=== PATIENT | female | born 2005 | race Caucasian/White ===

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

== ENCOUNTER 2024-03-06 19:54 | Emergency (ER) | payer MEDICAID, SELFPAY ==
[2024-03-06 19:56] VITALS: BP 155/96; PULSE 109; RESP 18; TEMP 36.9; O2SAT 99
--- NOTE | 2024-03-06 19:59 | W.ED.GENAD ---
Discharge Plan Disposition Patient Disposition: Home Condition: Stable Discharge Details Clinical Impression: Contusion of right upper extremity Primary Care Provider: Kassi Garay ED Provider: Dylan Mcdonough Home Meds and New Rx's Prescriptions: Continued albuterol sulfate [ProAir HFA] 90 mcg/actuation HFA aerosol inhaler 2 puff Inhalation Q4H PRN Qty: 2 3RF Rx Instructions: Take 2 puffs with spacer every 4-6 hours as needed (DME) Aerochamber MV Spacer See Rx Instructions .ROUTE .MEDSUPPLY Qty: 1 1RF Rx Instructions: As directed phenazopyridine [Pyridium] 100 mg tablet 100 mg PO TID PRN (Reason: pain) Qty: 20 0RF Rx Instructions: Do not take more than 2 days in a row buspirone 15 mg tablet 15 mg PO BID Qty: 60 3RF Rx Instructions: take one tablet twice a day acyclovir 400 MG tablet 400 mg PO TID PRN Rx Instructions: take 1 tablet 3 times a day for 5 days, begin at first hint of cold sore Discharge Instructions Instructions: Contusion in Adults (ED) Additional Instructions: You were seen in the emergency department for the fall from a horse. You have some minor abrasions to right bicep and right scapula area, there is no acute fracture seen on your x-rays of your right upper extremity, I suspect that you have significant contusions and your bruising will get worse in the coming days. Please rest, ice, compress and elevate. Please use therapeutic dosing of Tylenol (acetamenophen) & Advil (ibuprofen) in an alternating fashion as follows: Take 1000mg of Tylenol every 6 hours without missing doses- that is 4 times per day. Senior Care in between the Tylenol dosings, take 400-600mg of Advil also on a 6 hour schedule, that is also 4 times per day. The daily maximum dosing of Tylenol is 4000mg, and the daily maximum dosing of Advil is 2400mg. This is safe to do for weeks. Please note that some common cold medications & prescription pain medications may contain acetamenophen and you need to read OTC drug labels and factor that in to maximum daily dosings. Please return to the emergency department for any signs of neurovascular compromise like complete numbness, extreme swelling and pain in the right forearm, any transient numbness in your groin, urinary retention, bowel incontinence, leg paresthesias. Stand Alone Forms: Work Release Referrals: Kassi Garay [Primary Care Provider] - HPI General Date/Time Provider Initiated Documentation: 03/06/24 19:59. HPI Narrative: 19 year-old female presents to ED today by POV/ambulating with her family with a chief complaint of fall from horse, injury to R arm with onset just prior to arrival. Quality described as R elbow pain, abrasion to R shoulder, no radiation to neck pain, headstrike, LOC, post-event nausea/vomiting, complete numbness, inability to move the arm, chest pain, shortness of breath, rib pain. Severity is described as moderate. Palliating factors include nothing specific attempted. Provoking factors include nothing specific. Events leading up to the incident/Associated Symptoms: [ ]. Patient not anticoagulated. Related Data Home Medications Medication Instructions Recorded Confirmed acyclovir 400 mg tablet 400 mg PO TID PRN 03/02/20 03/06/24 inhalational spacing device #1 ea 10/06/20 03/06/24 (Aerochamber MV spacer) albuterol sulfate 90 mcg/actuation 2 puff inhalation Q4H PRN ##2 10/11/21 03/06/24 aerosol inhaler (ProAir HFA) phenazopyridine 100 mg tablet 100 mg PO TID PRN pain #20 tabs 12/21/22 03/06/24 (Pyridium) buspirone 15 mg tablet 15 mg PO BID #60 tabs 12/26/22 03/06/24 Previous Rx's Medication Instructions Recorded inhalational spacing device #1 ea 10/06/20 (Aerochamber MV spacer) albuterol sulfate 90 mcg/actuation 2 puff inhalation Q4H PRN ##2 10/11/21 aerosol inhaler (ProAir HFA) phenazopyridine 100 mg tablet 100 mg PO TID PRN pain #20 tabs 12/21/22 (Pyridium) buspirone 15 mg tablet 15 mg PO BID #60 tabs 12/26/22 Allergies Allergy/AdvReac Type Severity Reaction Status Date / Time Penicillins Allergy Intermediate RASH Verified 03/06/24 20:12 Sulfa (Sulfonamide AdvReac Mild Other (See Verified 03/06/24 20:12 Antibiotics) Comment) General Stated Complaint: Orthopedic SHYANN: 4 Review of Systems All systems reviewed & are unremarkable except as noted in HPI and below Exam Narrative Exam Narrative: GENERAL APPEARANCE: Well-nourished, non-toxic, awake and alert, atraumatic, no acute distress. SKIN: Warm, pink, dry, intact, without rashes/lesions/ulcerations. HEAD: Normocephalic, atraumatic, normal hair distribution for gender/age. EYES: Pupils PERRLA, EOMs intact without nystagmus, normal conjunctiva, no exudates on lids/lashes. ENT: Nares patent, no circumoral cyanosis, no facial swelling NECK: Supple, trachea midline, painless cervical ROM. LUNGS/CHEST: Non-labored respirations, normal A/P diameter, symmetrical expansion, no chest wall deformity HEART (CV/PV): Regular rate, R radial pulse 2+, no peripheral edema, no JVD. ABDOMEN: Soft, non-distended, no guarding. MSK: Normal ROM, no swelling/deformity to bilateral UEs or LEs, moving all extremities without weakness, no cyanosis, spine midline without tenderness, normal curvature. R UE: Abrasion to skin around medial bicep, abrasion to skin posterior scapula, significant midshaft humeral tenderness, significant elbow tenderness with bruising and swelling without overt deformity, has severe limited range of motion due to pain, sensation intact in motor vehicle representative strength 5/5 in right hand, right radial pulse 2+, no deltoid insertion tenderness, no deformity to right clavicle, no midline vertebral tenderness/crepitus/step-offs, no scalp hematomas NEURO: Mental Status AAOx4 - alert to person, place, time, events No facial droop, no forehead involvement. Motor: No focal weakness - strength 5/5 in bilateral UEs and LEs, proximal and distal, symmetric. Sensory: sensation intact to light touch globally. Gait normal: patient ambulated without ataxia into ED room. PSYCH: euthymic, cooperative, pleasant, appropriate speech Course Vital Signs Vital signs: Vital Signs Temperature 36.9 C 03/06/24 19:56 Pulse 109 H 03/06/24 19:56 Respiratory Rate 18 03/06/24 19:56 Blood Pressure 155/96 H 03/06/24 19:56 Pulse Oximetry 99 03/06/24 19:56 Temperature 36.9 C 03/06/24 19:56 Temperature Source Skin 03/06/24 19:56 Pulse 109 H 03/06/24 19:56 Respiratory Rate 18 03/06/24 19:56 Blood Pressure 155/96 H 03/06/24 19:56 Blood Pressure Position Sitting 03/06/24 19:56 Pulse Oximetry 99 03/06/24 19:56 Oxygen Delivery Method Room Air 03/06/24 19:56 Oxygen Flow Rate 0 03/06/24 19:56 Pain Level 6 03/06/24 19:56 Medical Decision Making This dictation utilizes [id number] dictation software and may contain unedited grammatical errors. 19 y/o F presents to ED today with a chief complaint of fall from horse with R arm pain - elbow and shoulder, abrasion to posterior shoulder, denies headstrike/LOC, denies neck pain, no nausea/vomiting, is able to move the arm- is R hand dominant. Patient was not wearing a helmet, states horse stepped on her bicep area afterwards. Patients' medical history: negative, otherwise healthy. Family and social history: noncontributory. Pertinent exam findings / vital signs include R UE: Abrasion to skin around medial bicep, abrasion to skin posterior scapula, significant midshaft humeral tenderness, significant elbow tenderness with bruising and swelling without overt deformity, has severe limited range of motion due to pain, sensation intact in motor vehicle representative strength 5/5 in right hand, right radial pulse 2+, no deltoid insertion tenderness, no deformity to right clavicle, no midline vertebral tenderness/crepitus/step-offs, no scalp hematomas. Differential / pathologies of concern include fracture, abrasion, not NV compromise. Diagnostic studies of: -XR R Shoulder, XR R Elbow. -no acute fractures seen, question slight AC separation R shoulder Interventions of: -Tdap likely UTD- encouraged checking with PCP, had routine shots likely had Tdap at 17 yrs old. -1g APAP, 30mg IM toradol, 5mg oxycodone PO ED Course/Assessment/Plan: 19-year-old female had a fall from her horse with abrasions to the posterior right shoulder, right elbow pain where her horse stepped on her after the fall, was not wearing a helmet but denies head strike or neck pain, has mild pain to her hip where she came down on the ground but is ambulating fine and states this is much more mild than her upper extremity pain. X-ray of the elbow and shoulder are negative for acute fracture I do question is slight AC separation of the right shoulder on exam and review of x-ray. I recommend therapeutic dosing of Tylenol and ibuprofen as well as RICE therapy, keeping the minor abrasions clean which were addressed here in the department. Recommend she return for any signs of neurovascular compromise like severe swelling and pain in the right forearm compartment, any numbness or tingling or inability to move her upper or lower extremities. Findings not consistent with fracture, NV compromise. Disposition of Contusion of Right Upper Extremity. Patient verbalized understanding of the plan and return to ED criteria and engaged in shared decision making. Medical Records Medical records reviewed: Yes I reviewed the patient's medical records. Imaging Data Radiologic Study: Attestation: I personally reviewed and interpreted this imaging study as follows: Imaging: X-Ray Radiologist's impression: Exam: XR Right Elbow Exam date and time: 03/06/2024 8:44 PM Age: 19 years old Clinical indication: Injury or trauma; Blunt trauma (contusions or hematomas); Shoulder and elbow; Right; Injury details: Fall from horse R shoulder \T\ elbow pain TECHNIQUE: Imaging protocol: Radiologic exam of the right elbow. Views: 3 or more views. COMPARISON: CR XR SHOULDER RT COMPLETE 2+V 03/06/2024 8:42 PM FINDINGS: Bones/joints: Radial head is unremarkable. Distal humerus is unremarkable. Olecranon is unremarkable. No fracture or dislocation. Soft tissues: Normal. IMPRESSION: No fracture or dislocation. Dictated and Authenticated by: Ezequiel Rodríguez MD. Ordering:ESME Richardson MD Radiologic Study #2: Attestation: I personally reviewed and interpreted this imaging study as follows: Imaging: X-Ray Radiologist's impression: Exam: XR Right Shoulder Exam date and time: 03/06/2024 8:42 PM Age: 19 years old Clinical indication: Injury or trauma; Blunt trauma (contusions or hematomas); Shoulder and elbow; Right; Injury details: Fall from horse R shoulder \T\ elbow pain TECHNIQUE: Imaging protocol: Radiologic exam of the right shoulder. Views: 2 or more views. COMPARISON: No relevant prior studies available. FINDINGS: Bones/joints: No evidence of clavicular fracture. No evidence of scapular fracture. Humeral head and neck are unremarkable. No evidence of rib fracture. No fracture or dislocation. Soft tissues: Normal. IMPRESSION: No fracture or dislocation. Dictated and Authenticated by: Ezequiel Rodríguez MD. Quality:[facility] Health Related Social Needs: No Data to Display PFSH All Active Problems (Updated 03/06/24 @ 21:35 by CAMACHO Shelley) Contusion of right upper extremity (Acute) Tick bite (Acute) Anxiety (Chronic) Pain in pelvis (Acute) Hematochezia (Acute) Interstitial cystitis (Acute) Pyridium PRN and push fluids with episodes of dysuria Herpes labialis (Acute 02/08/13) Mild intermittent asthma without complication (Acute 09/14/17) exercised induced SOB Medical History Closed fracture of shaft of radius (08/20/12) Concussion without loss of consciousness, initial encounter (04/09/15) Eating disorder with ongoing treatment Bulimia features. Followed by Mabel Sotelo and has routine counseling with Adrianna Wolf. 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) UTI (urinary tract infection) Surgical History History of dental surgery All 4 wisdom teeth removed spring 2019 Family History Mother Mental disorder depression Asthma Father Asthma Brother Asthma Grandparent Heart disease Social History Smoking/Tobacco Use Status: Current every day Tobacco Type: e-cigarettes Smoking risk assessment performed?: Yes Alcohol Intake: current Alcohol Intake frequency: a few times a month Alcohol type: other Drug use: Never Substance use type: marijuana Housing: house Education Level: high school Details: 12th grade--[employer] Pets and animals: Yes (5 dogs, 5 cats, horses, guinea pigs) Pets and animals: cat(s), dog(s), guinea pig(s) and farm animals Current gender identity: female Seatbelt use: always Helmet use: Yes Helmet use: always Water heater temp set <120 deg: Yes Fire extinguisher in home: Yes Carbon monox detector in home: Yes Firearms in home: Yes Firearms unloaded and locked: Yes Do you feel safe at home: Yes Do you feel safe in your relationship?: Yes Additional Social history: mother present History History 1 Para 0 Hx # Term Pregnancies 0 Multiple births 0 Hx # Pregnancies 0 Ectopic pregnancies 0 AB induced 0 Hx Number of Living Children 0 AB spontaneous 0
--- NOTE | 2024-03-06 20:00 | DI.RAD_ITS ---
Exam(s) XR SHOULDER RT COMPLETE 2+V EXAM: XR SHOULDER RT COMPLETE 2+V CLINICAL HISTORY: fall from horse R shoulder elbow pain. TECHNIQUE: 2D digital imaging was performed of the right shoulder. Three images were obtained. AP, Grashey and Y views were obtained. COMPARISON: No exams were available for comparison FINDINGS: BONES: No acute fracture is present. No bony destructive lesion is seen. JOINTS: No dislocation present. SOFT TISSUE: Normal. IMPRESSION: No acute fracture or dislocation. If there is concern for rotator cuff or AC ligament injury, MRI sh ould be considered for further evaluation. DATA REPOSITORY: RADIATION DOSE DELIVERED:
--- NOTE | 2024-03-06 20:00 | DI.RAD_ITS ---
Exam(s) XR ELBOW RT COMPLETE EXAM: XR ELBOW RT COMPLETE CLINICAL HISTORY: fall from horse R shoulder elbow pain. TECHNIQUE: 2D digital imaging was performed of the left elbow. Three images were obtained. AP, lat eral and oblique views were obtained. COMPARISON: No exams were available for comparison FINDINGS: BONES: No acute fracture is present. No bony destructive lesion is seen. JOINTS: The elbow is normally aligned. No joint effusion is seen. SOFT TISSUE: Mild edema seen in the soft tissues anterior medially. No radiopaque foreign body is id entified. IMPRESSION: No acute fracture or dislocation. DATA REPOSITORY: RADIATION DOSE DELIVERED:
[2024-03-06] MEDS: Acetaminophen 500 MG TAB (20:32)
[2024-03-06] MEDS: Ketorolac 30 MG/ML VIAL (20:32)
--- NOTE | 2024-03-06 21:30 | DI.VRAD_ITS ---
PROCEDURE INFORMATION: Exam: XR Right Elbow Exam date and time: 03/06/2024 8:44 PM Age: 19 years old Clinical indication: Injury or trauma; Blunt trauma (contusions or hematomas); Shoulder and elbow; Right; Injury details: Fall from horse R shoulder \T\ elbow pain TECHNIQUE: Imaging protocol: Radiologic exam of the right elbow. Views: 3 or more views. COMPARISON: CR XR SHOULDER RT COMPLETE 2+V 03/06/2024 8:42 PM FINDINGS: Bones/joints: Radial head is unremarkable. Distal humerus is unremarkable. Olecranon is unremarkable. No fracture or dislocation. Soft tissues: Normal. IMPRESSION: No fracture or dislocation. Dictated and Authenticated by: Ezequiel Rodríguez MD. Ordering:ESME Richardson MD
--- NOTE | 2024-03-06 21:35 | DI.VRAD_ITS ---
PROCEDURE INFORMATION: Exam: XR Right Shoulder Exam date and time: 03/06/2024 8:42 PM Age: 19 years old Clinical indication: Injury or trauma; Blunt trauma (contusions or hematomas); Shoulder and elbow; Right; Injury details: Fall from horse R shoulder \T\ elbow pain TECHNIQUE: Imaging protocol: Radiologic exam of the right shoulder. Views: 2 or more views. COMPARISON: No relevant prior studies available. FINDINGS: Bones/joints: No evidence of clavicular fracture. No evidence of scapular fracture. Humeral head and neck are unremarkable. No evidence of rib fracture. No fracture or dislocation. Soft tissues: Normal. IMPRESSION: No fracture or dislocation. Dictated and Authenticated by: Ezequiel Rodríguez MD. Ordering:ESME Richardson MD
[2024-03-06] MEDS: oxyCODONE 5 MG TAB PO (21:36)
[2024-03-06 21:44] VITALS: BP 119/82; PULSE 95; RESP 18; O2SAT 99
== END 2024-03-06 21:44 | disposition home or self-care (01) ==
PROVIDERS: Emergency Provider Physician Assistant; PCP Nurse Practitioner Family
DX: S40.021A Contusion of right upper arm, initial encounter (principal); S40.211A Abrasion of right shoulder, initial encounter; S40.811A Abrasion of right upper arm, initial encounter; F17.290 Nicotine dependence, other tobacco product, uncomplicated; V80.010A Animal-rider injured by fall from or being thrown from horse in noncollision accident, initial encounter; Y93.52 Activity, horseback riding
CPT/HCPCS: 99283; 73030; 73080; J1885

== ENCOUNTER 2025-05-07 17:24 | Observation (INO) | payer MEDICAID, SELFPAY ==
[2025-05-07] VITALS (14 sets, daily range): BP systolic 103–125; BP diastolic 59–78; PULSE 65–150; RESP 16–26; TEMP 36.5–39.2; O2SAT 96–98
--- NOTE | 2025-05-07 17:43 | DI.CT_ITS ---
Exam(s) CT CHEST W EXAM: CT CHEST W CLINICAL HISTORY: sepsis, L. breast cellulitis. TECHNIQUE: Multi planar reconstructions were performed. CONTRAST MATERIAL: Omnipaque 350; 70 cc COMPARISON: No exams were available for comparison FINDINGS: CHEST: LUNGS: No infiltrates nor pleural effusions. No significant lung nodules. No findings in trachea and mainstem bronchi. MEDIASTINUM: There is no hilar nor mediastinal adenopathy. Partially visualized thyroid appears unremarkable. CARDIAC: Heart size is normal. There is no pericardial effusion.Thoracic aorta appears unremarkable. VISUALIZED UPPER ABDOMEN:There are no significant adrenal masses. Spleen size normal. No obvious upper liver findings. OSSEOUS: No fractures. No osseous lesions.. OTHER: There is apparently left breasts cellulitis according to the requisition. There are no obvious focal breast findings. No evidence of abscess. No significant axillary adenopathy. Pectoralis muscles appear unremarkable. IMPRESSION: 1. No significant findings on the CT scan of the chest. 2. No obvious abnormal focal findings in the breasts, given the history here. There is also no axillary adenopathy. Report called by myself to ER physician 05/07/2025 at 7:22 p.m. RADIATION DOSE DELIVERED: 139.94mGy.cm Total DLP DATA REPOSITORY: All CT scans at this facility are submitted to the National Radiology Data Registry (NRDR) Dose Index Registry (DIR) with the [employer] (ACR). RADIATION OPTIMIZATION: All CT scans at this facility use at least one of these dose optimization techniques: automated exposure control; mA and/or kV adjustment per patient size (includes targeted exams where dose is matched to clinical indication); or iterative reconstruction.
[2025-05-07 18:03] LABS: Abs Immature Grans 0.11 10^3/uL (0.0-0.06); HCT 41.2 % (36.0-46.0); HGB 14.6 g/dL (11.2-15.7); Immature Grans % 0.5 %; MCH 32.2 pg (27.0-33.0); MCHC 35.4 % (32.0-36.0); MCV 91 fL (80-95); MPV 10.0 fL (8.0-11.0); Platelet Count 320 10^3/uL (130-400); RBC 4.54 10^6/uL (3.93-5.22); RDW 11.5 % (11.7-14.6); RDW-SD 38.1 fL; WBC 24.35 10^3/uL (4.4-10.8)
[2025-05-07] MEDS: Acetaminophen 500 MG TAB 1000 MG PO (18:12)
[2025-05-07 18:13] LABS: RBC Morphology Normal
[2025-05-07] MEDS: cefTRIAXone 1 GM/50 ML BAG IVPB (18:13)
[2025-05-07 18:17] LABS: ALT 21 U/L (14-59); AST 18 U/L (15-37); Albumin 4.5 g/dL (3.4-5.0); Alkaline Phosphatase 97 U/L (46-116); Anion Gap 13.3 mmol/L (3-11); BUN 15 mg/dL (7-18); Bilirubin, Total 1.0 mg/dL (0.2-1.0); CO2 22.7 mmol/L (21.0-32.0); Calcium 9.0 mg/dL (8.5-10.1); Chloride 100 mmol/L (98-107); Estimated GFR 107.44 (mL/min/1.73m2); Glucose 100 mg/dL (74-106); Magnesium 1.7 mg/dL (1.8-2.4); Potassium 3.7 mmol/L (3.5-5.1); Sodium 136 mmol/L (136-145); Total Protein 8.0 g/dL (6.4-8.2)
[2025-05-07] MEDS: Lactated Ringers 1,000 ML 1000 ML IV (18:30)
[2025-05-07] MEDS: Omnipaque 350 MG/ML 100 ML BTL 70 ML IJ (18:41)
[2025-05-07] MEDS: Normal Saline - Diluent 50 ML VIAL IJ (18:42)
--- NOTE | 2025-05-07 18:44 | W.ED.GENAD ---
Discharge Plan Disposition Patient Disposition: Admit to [facility] Discharge Details Clinical Impression: Sepsis, Cellulitis of left breast Admit Date/Time: 05/07/25 20:04 Admit Provider: Ted Peguero Attending Provider: Ted Peguero Primary Care Provider: Kassi Garay ED Provider: Brittney Valles Discharge Data Discharge Date/Time-TO BE ENTERED AT DEPARTURE: 05/07/25 20:26 HPI General Mode of arrival: ambulatory. Date/Time Provider Initiated Documentation: 05/07/25 17:36. Limitations to Documentation: no limitations. Information obtained by: patient, family and old records reviewed. HPI Narrative: This is a 20-year-old female patient with a history of mild intermittent asthma, presenting for evaluation of breast infection. The patient reports that her nipples were pierced last year and she has since had significant difficulty with intermittent superficial infections. She states that yesterday her left breast began to get very red, hot, and painful to the touch. She does note intermittent expression of pus from her nipples. States that she is not or breast-feeding, had a fever at home, and presented today for evaluation. She met criteria for sepsis alert in triage and was taken back for reevaluation. She reports generalized body weakness and discomfort. She does not have any associated shortness of breath, upper respiratory symptoms, dysuria, diarrhea, or abdominal pain. She is not currently taking any antibiotics, though she did recently finished a course of antibiotics for strep throat. Related Data Home Medications ?Medication ?Instructions ?Recorded ?Confirmed acyclovir 400 mg tablet 400 mg PO TID PRN 03/02/20 05/07/25 inhalational spacing device #1 ea 10/06/20 05/07/25 (Aerochamber MV spacer) albuterol sulfate 90 mcg/actuation 2 puff inhalation Q4H PRN ##2 10/11/21 05/07/25 aerosol inhaler (ProAir HFA) phenazopyridine 100 mg tablet 100 mg PO TID PRN pain #20 tabs 12/21/22 05/07/25 (Pyridium) buspirone 15 mg tablet 15 mg PO BID #60 tabs 12/26/22 05/07/25 levonorgestrel 14 mcg/24 hr (up to 1 device intrauterine ONCE 05/07/25 05/07/25 3 yrs) 13.5 mg intrauterine device (Mary) Previous Rx's ?Medication ?Instructions ?Recorded inhalational spacing device #1 ea 10/06/20 (Aerochamber MV spacer) albuterol sulfate 90 mcg/actuation 2 puff inhalation Q4H PRN ##2 10/11/21 aerosol inhaler (ProAir HFA) phenazopyridine 100 mg tablet 100 mg PO TID PRN pain #20 tabs 12/21/22 (Pyridium) buspirone 15 mg tablet 15 mg PO BID #60 tabs 12/26/22 Allergies Allergy/AdvReac Type Severity Reaction Status Date / Time Penicillins Allergy Intermediate RASH Verified 05/07/25 17:30 vancomycin AdvReac Intermediate rash, Verified 05/07/25 21:31 redness Sulfa (Sulfonamide AdvReac Mild Other (See Verified 05/07/25 17:30 Antibiotics) Comment) General Stated Complaint: Fever SHYANN: 2 Exam Narrative Exam Narrative: Gen: awake and alert, in no apparent distress. Appears well nourished. HEENT: PERRL, EOMs full and without nystagmus. External ears and nose normal, mucous membranes moist. Neck: Supple, full range of motion, no observable masses Lungs: No increased work of breathing, lung sounds clear and equal bilaterally without wheezes, rhonchi, or rales. CV: Heart with tachycardic rate and regular rhythm, no murmurs auscultated. Strong and symmetrical radial pulses. Breast: Breast examination supervised by BRAD Chinchilla, revealing bilaterally pierced nipples, right breast with very slight red bumps around the areola, left breast with redness, induration, and significant tenderness in the inferolateral quadrant. No palpable fluctuance, no axillary lymphadenopathy appreciated bilaterally Abdomen: Soft, nondistended, non-tender to palpation. No rigidity, rebound tenderness, or guarding. MSK: No joint swelling, no redness. Full ROM without limitation, no external traumatic findings. Skin: No rashes or lesions to visualized skin. Normal color, warm, and dry. Neuro: Cranial nerves II-XII intact and symmetrical bilaterally. 5/5 strength in all muscle groups x4 extremities. No sensory deficits. Ambulates with steady gait. Psych: Appropriate for situation. Course Vital Signs Vital signs: Vital Signs Temperature 39.2 C H 05/07/25 17:30 Pulse 150 H 05/07/25 17:30 Respiratory Rate 24 05/07/25 17:30 Blood Pressure 111/73 05/07/25 17:30 Pulse Oximetry 96 05/07/25 17:30 Temperature 39.2 C H 05/07/25 17:30 Temperature Source Oral 05/07/25 17:30 Pulse 145 H 05/07/25 17:40 Respiratory Rate 19 05/07/25 17:40 Blood Pressure 116/60 05/07/25 17:40 Blood Pressure Position Sitting 05/07/25 17:30 Pulse Oximetry 98 05/07/25 17:40 Oxygen Delivery Method Room Air 05/07/25 17:40 Oxygen Flow Rate 0 05/07/25 17:30 Pain Level 4 05/07/25 17:40 Lab/Test Results Lab/Test Results: 05/07/25 18:05 Blood Blood Culture - Pending 05/07/25 17:50 Blood Blood Culture - Pending Laboratory Tests Range/Units 05/07/25 17:50 WBC (4.4-10.8) 10^3/uL 24.35 H RBC (3.93-5.22) 10^6/uL 4.54 Hgb (11.2-15.7) g/dL 14.6 Hct (36.0-46.0) % 41.2 MCV (80-95) fL 91 MCH (27.0-33.0) pg 32.2 MCHC (32.0-36.0) % 35.4 RDW (11.7-14.6) % 11.5 L Plt Count (130-400) 10^3/uL 320 MPV (8.0-11.0) fL 10.0 Immature Gran % % 0.5 Neutrophils % % 91.1 Lymphocytes % % 3.9 Monocytes % % 4.3 Eosinophils % % 0.0 Basophils % % 0.2 Nucleated RBC % (0.0-0.3) % 0.0 Absolute Neutrophils (1.2-6.7) 10^3/uL 22.18 H Absolute Lymphocytes (1.2-3.4) 10^3/uL 0.95 L Absolute Monocytes (0.1-0.8) 10^3/uL 1.05 H Absolute Eosinophils (0.0-0.7) 10^3/uL 0.00 Absolute Basophils (0.0-0.2) 10^3/uL 0.05 RBC Morphology Normal VBG Lactate (<or=2.0) mmol/L 1.1 Sodium (136-145) mmol/L 136 Potassium (3.5-5.1) mmol/L 3.7 Chloride (98-107) mmol/L 100 Carbon Dioxide (21.0-32.0) mmol/L 22.7 Anion Gap (3-11) mmol/L 13.3 H BUN (7-18) mg/dL 15 Creatinine (0.55-1.02) mg/dL 0.8 Est GFR (CKD-EPI 2020) (mL/min/1.73m2) 107.44 Glucose (74-106) mg/dL 100 Calcium (8.5-10.1) mg/dL 9.0 Magnesium (1.8-2.4) mg/dL 1.7 L Total Bilirubin (0.2-1.0) mg/dL 1.0 AST (15-37) U/L 18 ALT (14-59) U/L 21 Alkaline Phosphatase (46-116) U/L 97 Total Protein (6.4-8.2) g/dL 8.0 Albumin (3.4-5.0) g/dL 4.5 Medical Decision Making This is a 20-year-old female patient presenting for evaluation of a breast infection. Differential includes but is not limited to cellulitis, abscess, patient does meet sepsis criteria. Considered bacteremia, as well as other infectious sources including pneumonia, urinary tract infection. No intra-abdominal symptoms to suggest intra-abdominal pathology. Considered metabolic and electrolyte derangements, dehydration, kidney injury. Savun-[id number] test was negative, jewelry was removed from the nipples, and the patient will be provided with Tylenol, lactated Ringer's, and we will obtain laboratory studies to include blood cultures, CBC, CMP, magnesium, lactate, urinalysis. I will provide the patient with ceftriaxone and vancomycin for her presumed skin source. -I reviewed the patient's laboratory studies, which noted a leukocytosis to 24, no anemia or thrombocytopenia. Lactate is 1.1, chemistry panel without electrolyte derangement, kidney injury, or liver disease. Urinalysis noninfectious. I did obtain a CT of the patient's chest to evaluate for intrathoracic pathology and obvious abscess. No significant focal findings or abnormalities on CT, recommendation by radiology for ultrasound if there is ongoing concern for breast abscess. The patient had flushing and redness with vancomycin, this was discontinued and daptomycin was provided. I reached out to the hospitalist who is graciously accepted this patient for admission. She remained hemodynamically improved while under my care and transferred to the floor without incident. Brittney Valles MD [facility] All Active Problems (Updated 05/07/25 @ 23:59 by Brittney Valles MD) DVT prophylaxis (Acute) Sepsis (Acute) Cellulitis of left breast (Acute) Tick bite (Acute) Anxiety (Chronic) Pain in pelvis (Acute) Hematochezia (Acute) Interstitial cystitis (Acute) Pyridium PRN and push fluids with episodes of dysuria Herpes labialis (Acute 02/08/13) Mild intermittent asthma without complication (Acute 09/14/17) exercised induced SOB Medical History Closed fracture of shaft of radius (08/20/12) Concussion without loss of consciousness, initial encounter (04/09/15) Eating disorder with ongoing treatment Bulimia features. Followed by Mabel Sotelo and has routine counseling with Adrianna Wolf. 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) UTI (urinary tract infection) Surgical History History of dental surgery All 4 wisdom teeth removed spring 2019 Family History Mother Mental disorder depression Asthma Father Asthma Brother Asthma Grandparent Heart disease Social History (Updated 05/07/25 @ 21:44 by Ted Peguero) Smoking/Tobacco Use Status: Current every day Tobacco Type: e-cigarettes Smokeless tobacco user: snus Quit status: considering quitting Smoking risk assessment performed?: Yes Alcohol Intake: current Alcohol Intake frequency: a few times a month Alcohol type: other Drug use: Never Substance use type: marijuana Housing: house Education Level: high school Details: 12th grade--[employer] Pets and animals: Yes (5 dogs, 5 cats, horses, guinea pigs) Pets and animals: cat(s), dog(s), guinea pig(s) and farm animals Current gender identity: female Seatbelt use: always Helmet use: Yes Helmet use: always Water heater temp set <120 deg: Yes Fire extinguisher in home: Yes Carbon monox detector in home: Yes Firearms in home: Yes Firearms unloaded and locked: Yes Do you feel safe at home: Yes Do you feel safe in your relationship?: Yes Additional Social history: works at [employer]. Male marcelle Sprague. History History 1 Para 0 Hx # Term Pregnancies 0 Multiple births 0 Hx # Pregnancies 0 Ectopic pregnancies 0 AB induced 0 Hx Number of Living Children 0 AB spontaneous 0
[2025-05-07] MEDS: VANCOMYCIN 1,250 MG in Normal Saline 250 ML 166.667 MG IVPB (19:13)
[2025-05-07 19:28] LABS: Glucose Negative (Negative)
[2025-05-07] MEDS: Ketorolac 15 MG/ML VIAL IVP (19:30)
--- NOTE | 2025-05-07 19:44 | NUR.NOTE ---
PT had reaction to vancomycin. PT became flushed and itching. Vanco stopped and ED MD notified. PTs VS unchanged. new ABX to be ordered. Nursing Note:
--- NOTE | 2025-05-07 20:10 | W.PM.HP.N ---
Date of service: 05/07/25 Time of Service: 20:10 Assessment and Plan Assessment and plan (1) Cellulitis of left breast: Status: Acute Assessment and plan: Rapidly progressive cellulitis/mastitis of the left breast with associated sepsis syndrome. Given clinical picture, I agree with admission for IV antibiotics No abscess on CT but some perulent discharge reported, will cover for staph including MRSA. She had red rash with vancomycin. Will use daptomycin for MRSA coverage, continue ceftriaxone. Blood cultures pending. If focal fluctuance/collection develop, consider u/s (2) Sepsis: Status: Acute Assessment and plan: As above, WBC, HR, fever, and focal infection c/w sepsis. Fortunately lactate not elevated, no organ damage. (3) Mild intermittent asthma without complication: Status: Acute Assessment and plan: not active, can ue albuterol prn but I don't anticipate she will need it. (4) DVT prophylaxis: Status: Acute Assessment and plan: enoxaparin History of Present Illness History of Present Illness Chief Complaint: fever Narrative: 20 yo F without significant medical history who presents with fever and progressive redness, pain, and swelling of her breast that came on rapidly today. She has had intermittent local infections around the right nipple off/on since she had both pierced with horizontal stainless steel studs 2.5 years ago. They were fine until yesterday, when both nipples started to get swollen, more red, and emit pus around piercings. This morning she noted some redness and swelling into her actual breast on the left, which she has never had before. By just before noon she started to feel achey all over and fatigued. She went home from work around 12:30. Headache and body aches worsened along with worst left breast pain that radiated into her left arm. She developed fevers with shaking chills, and around 4:30 her fever was 103 and she came to the ED. She denies n/v. Appetite okay. Her fever is better now with medicine in the ED. She was started on vancomycin in the ED but she developed feeling of diffuse itching and red rash soon afte the infusion started and she never got her dose. She was given ceftriaxone. She has no sick exposures. no h/o MRSA. no IVDU. No recent travel. She does have farm animals at home. No other rashes. Review of Systems All systems reviewed & are unremarkable except as noted in HPI and below PFSH All Active Problems (Updated 05/07/25 @ 21:29 by Ted Peguero) DVT prophylaxis (Acute) Sepsis (Acute) Cellulitis of left breast (Acute) Tick bite (Acute) Anxiety (Chronic) Pain in pelvis (Acute) Hematochezia (Acute) Interstitial cystitis (Acute) Pyridium PRN and push fluids with episodes of dysuria Herpes labialis (Acute 02/08/13) Mild intermittent asthma without complication (Acute 09/14/17) exercised induced SOB Medical History Closed fracture of shaft of radius (08/20/12) Concussion without loss of consciousness, initial encounter (04/09/15) Eating disorder with ongoing treatment Bulimia features. Followed by Mabel Sotelo and has routine counseling with Adrianna Wolf. 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) UTI (urinary tract infection) Surgical History History of dental surgery All 4 wisdom teeth removed spring 2019 Family History Mother Mental disorder depression Asthma Father Asthma Brother Asthma Grandparent Heart disease Social History (Updated 05/07/25 @ 21:44 by Ted Peguero) Smoking/Tobacco Use Status: Current every day Tobacco Type: e-cigarettes Smokeless tobacco user: snus Quit status: considering quitting Smoking risk assessment performed?: Yes Alcohol Intake: current Alcohol Intake frequency: a few times a month Alcohol type: other Drug use: Never Substance use type: marijuana Housing: house Education Level: high school Details: 12th grade--[employer] Pets and animals: Yes (5 dogs, 5 cats, horses, guinea pigs) Pets and animals: cat(s), dog(s), guinea pig(s) and farm animals Current gender identity: female Seatbelt use: always Helmet use: Yes Helmet use: always Water heater temp set <120 deg: Yes Fire extinguisher in home: Yes Carbon monox detector in home: Yes Firearms in home: Yes Firearms unloaded and locked: Yes Do you feel safe at home: Yes Do you feel safe in your relationship?: Yes Additional Social history: works at [employer]. Male marcelle Sprague. History History 1 Para 0 Hx # Term Pregnancies 0 Multiple births 0 Hx # Pregnancies 0 Ectopic pregnancies 0 AB induced 0 Hx Number of Living Children 0 AB spontaneous 0 Meds Allergies and Home Medications Allergies Allergy/AdvReac Type Severity Reaction Status Date / Time Penicillins Allergy Intermediate RASH Verified 05/07/25 17:30 vancomycin AdvReac Intermediate rash, Verified 05/07/25 21:31 redness Sulfa (Sulfonamide AdvReac Mild Other (See Verified 05/07/25 17:30 Antibiotics) Comment) Home Medications ?Medication ?Instructions ?Recorded ?Confirmed ?Type acyclovir 400 mg tablet 400 mg PO TID PRN 03/02/20 05/07/25 History inhalational spacing device #1 ea 10/06/20 05/07/25 Rx (Aerochamber MV spacer) albuterol sulfate 90 mcg/actuation 2 puff inhalation Q4H PRN ##2 10/11/21 05/07/25 Rx aerosol inhaler (ProAir HFA) phenazopyridine 100 mg tablet 100 mg PO TID PRN pain #20 tabs 12/21/22 05/07/25 Rx (Pyridium) buspirone 15 mg tablet 15 mg PO BID #60 tabs 12/26/22 05/07/25 Rx Exam Narrative Exam Narrative: GEN: Alert and oriented x 4, pleasant and cooperative, gives linear history. No acute distress at rest. HEENT: Head atraumatic. Conjunctiva clear, no icterus. PEERL, EOMI. no rhinorrhea. MMM, OP benign. Neck is supple with no masses or lymphadenopathy, trachea midline LUNGS: CTAB with normal effort CV: RRR with no murmurs, gallops, or rubs. ABD: active bowel sounds, soft, nontender and nondistended. No masses. EXT: no cyanosis, clubbing, or edema MSK: No joint redness or swelling NEURO: CN 2-12 grossly intact. Normal movement of 4 extremities. Normal speech and coordination. No tremor Breasts: right breast normal appearing, mild redness/crust around wound in nipple (studs removed). Left nipple similarly appearing, but entire breast is swollen, notably more full, erythema, marked tenderness, and induration in the supererior to upper/outer quadrant to the axilla. No LAD in axilla or pain or streaking down the arm. No fluctuance, though tenderness limits full exam (RN present for exam) SKIN: No rashes or open wounds other than above. PSYCH: normal mood and affect, nl thought process Results Imaging CT scan - chest: report reviewed (1. No significant findings on the CT scan of the chest. 2. No obvious abnormal focal findings in the breasts, given the history here. There is also no axillary adenopathy.) Labs 05/07/25 17:50 05/07/25 17:50 Labs: Laboratory Results - last 24 hr 05/07/25 05/07/25 17:50 19:11 WBC 24.35 H RBC 4.54 Hgb 14.6 Hct 41.2 MCV 91 MCH 32.2 MCHC 35.4 RDW 11.5 L Plt Count 320 MPV 10.0 Immature Gran % 0.5 Neutrophils % 91.1 Lymphocytes % 3.9 Monocytes % 4.3 Eosinophils % 0.0 Basophils % 0.2 Nucleated RBC % 0.0 Absolute Neutrophils 22.18 H Absolute Lymphocytes 0.95 L Absolute Monocytes 1.05 H Absolute Eosinophils 0.00 Absolute Basophils 0.05 RBC Morphology Normal VBG Lactate 1.1 Sodium 136 Potassium 3.7 Chloride 100 Carbon Dioxide 22.7 Anion Gap 13.3 H BUN 15 Creatinine 0.8 Est GFR (CKD-EPI 2020) 107.44 Glucose 100 Calcium 9.0 Magnesium 1.7 L Total Bilirubin 1.0 AST 18 ALT 21 Alkaline Phosphatase 97 Total Protein 8.0 Albumin 4.5 Urine Color Yellow Urine Clarity Clear Urine pH 6.0 Ur Specific [place] 1.010 Urine Protein Negative Urine Ketones 15 H Urine Blood Negative Urine Nitrite Negative Urine Bilirubin Negative Urine Urobilinogen 0.2 Ur Leukocyte Esterase Negative Urine Glucose Negative Last Vital Signs Temp 39.2 C H 05/07/25 17:30 Pulse 107 H 05/07/25 19:31 Resp 23 05/07/25 18:40 BP 116/64 05/07/25 19:30 Pulse Ox 97 05/07/25 19:31 Time Spent Time spent with Patient: 55-74 minutes Time was spent: preparing to see the patient(eg.review tests), obtaining and/or reviewing separately otained hiistory, ordering medications,tests, procedures, referring, communicating with other health nursing care partner, indepentently interpreting results, counseling the patient and care coordination
--- NOTE | 2025-05-07 20:51 | W.PC.ACHO ---
Registration Status: ADM IN Primary Language: Preferred Language: Yi ED Information & Data Chief Complaint Fever 05/07/25 18:44 Triage Note PT reports she has pierced 05/07/25 17:30 nipples since last year. Multiple infections since then. Reports that she has noticed both are inflamed and painful. Reports fever, weakness and is tachycardic. SEPSIS ALERT. 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) Exercise-induced asthma (Last Reviewed 02/16/22 @ 10:21 by Giovana PEREZ) History of dental surgery Most Recent Vital Signs Temperature 36.5 C 05/07/25 20:46 Temperature Source Tympanic 05/07/25 20:46 Pulse 65 05/07/25 20:46 Pulse 126 H 05/07/25 18:40 Respiratory Rate 16 05/07/25 20:46 Blood Pressure 103/62 05/07/25 20:46 Blood Pressure Mean 75 05/07/25 20:46 Blood Pressure Position Sitting 05/07/25 17:30 Pulse Oximetry 97 05/07/25 20:46 Oxygen Delivery Method Room Air 05/07/25 20:46 Oxygen Flow Rate 0 05/07/25 20:46 Pain Level 4 05/07/25 17:40 Allergies Penicillins Allergy (Intermediate, Verified 05/07/25 17:30) RASH Sulfa (Sulfonamide Antibiotics) Adverse Reaction (Mild, Verified 05/07/25 17:30) Other (See Comment) Pt reports it made her very tired and out-of-it, and also made her sneeze. Active Medications Generic Name Dose Route Start Last Admin Trade Name Freq PRN Reason Stop Dose Admin Iohexol 70 ml 05/07/25 18:45 05/07/25 18:41 Omnipaque 350 Mg/Ml 100 Ml Btl IJ 06/06/25 23:59 70 ml DIRECTED BIBIANA Administration Sodium Chloride 50 ml 05/07/25 18:45 05/07/25 18:42 Normal Saline - Diluent 50 Ml Vial IJ 50 ml .FOR DI USE BIBIANA Administration IV IV Catheter Type [Left Peripheral IV Antecubital] IV Catheter Type [Right Peripheral IV Antecubital] IV Catheter Gauge [Left 18 Antecubital] IV Catheter Gauge [Right 18 Antecubital] Diet Orders Category Date Time Status Regular/Normal [DIET] Nutrition 05/08/25 Breakfast Ordered Diagnostics 05/07/25 05/07/25 Range/Units 19:11 17:50 WBC 24.35 H (4.4-10.8) 10^3/uL RBC 4.54 (3.93-5.22) 10^6/uL Hgb 14.6 (11.2-15.7) g/dL Hct 41.2 (36.0-46.0) % MCV 91 (80-95) fL MCH 32.2 (27.0-33.0) pg MCHC 35.4 (32.0-36.0) % RDW 11.5 L (11.7-14.6) % Plt Count 320 (130-400) 10^3/uL MPV 10.0 (8.0-11.0) fL Immature Gran % 0.5 % Neutrophils % 91.1 % Lymphocytes % 3.9 % Monocytes % 4.3 % Eosinophils % 0.0 % Basophils % 0.2 % Nucleated RBC % 0.0 (0.0-0.3) % Absolute Neutrophils 22.18 H (1.2-6.7) 10^3/uL Absolute Lymphocytes 0.95 L (1.2-3.4) 10^3/uL Absolute Monocytes 1.05 H (0.1-0.8) 10^3/uL Absolute Eosinophils 0.00 (0.0-0.7) 10^3/uL Absolute Basophils 0.05 (0.0-0.2) 10^3/uL RBC Morphology Normal VBG Lactate 1.1 (<or=2.0) mmol/L Sodium 136 (136-145) mmol/L Potassium 3.7 (3.5-5.1) mmol/L Chloride 100 (98-107) mmol/L Carbon Dioxide 22.7 (21.0-32.0) mmol/L Anion Gap 13.3 H (3-11) mmol/L BUN 15 (7-18) mg/dL Creatinine 0.8 (0.55-1.02) mg/dL Est GFR (CKD-EPI 2020) 107.44 (mL/min/1.73m2) Glucose 100 (74-106) mg/dL Calcium 9.0 (8.5-10.1) mg/dL Magnesium 1.7 L (1.8-2.4) mg/dL Total Bilirubin 1.0 (0.2-1.0) mg/dL AST 18 (15-37) U/L ALT 21 (14-59) U/L Alkaline Phosphatase 97 (46-116) U/L Total Protein 8.0 (6.4-8.2) g/dL Albumin 4.5 (3.4-5.0) g/dL Urine Color Yellow (Yellow) Urine Clarity Clear (Clear) Urine pH 6.0 (5-8) Ur Specific [place] 1.010 (1.005-1.025) Urine Protein Negative (Neg-Trace) mg/dL Urine Ketones 15 H (Negative) mg/dL Urine Blood Negative (Negative) Urine Nitrite Negative (Negative) Urine Bilirubin Negative (Negative) Urine Urobilinogen 0.2 (Up to 0.2) mg/dL Ur Leukocyte Esterase Negative (Negative) Urine Glucose Negative (Negative) mg/dL 05/07/25 18:05 Blood Culture - Pending Blood 05/07/25 17:50 Blood Culture - Pending Blood Intake and Output - 24 Hour Total 05/07/25 17:24 thru 05/07/25 19:43 Intake Total 133.334 Balance 133.334 Weight 58.967 kg Intake: IV 133.334 Falls Risk Assessment History of Falls No History 05/07/25 20:26 Contributing Factors No Factors 05/07/25 20:26 Ambulatory Aids Independent 05/07/25 20:26 Tubes/Lines None 05/07/25 20:26 Gait Evaluation No gait disturbance 05/07/25 20:26 Cognition No cognitive impairment 05/07/25 20:26 Fall Total Score 0 05/07/25 20:26 Level of Risk Standard/Low Risk 05/07/25 20:26 Problems (Last Reviewed 02/16/22 @ 10:21 by Giovana PEREZ) DVT prophylaxis (Acute) Sepsis (Acute) Cellulitis of left breast (Acute) Mild intermittent asthma without complication (Acute 09/14/17) Notes 05/07/25 19:44 Nursing Notes by Carlos Crystal PT had reaction to vancomycin. PT became flushed and itching. Vanco stopped and ED MD notified. PTs VS unchanged. new ABX to be ordered. Nursing Note: Initialized on 05/07/25 19:44 - END OF NOTE v v v v v v v v v Sending and/or Receiving Nurses: Please use comment section below to note any information pertinent to the patient hand-off not included above. Information / Comments: Patient is A&Ox4. Here for infected nipple. Report received from: Carlos
[2025-05-07] MEDS: Normal Saline Flush 10 ML SYR IVP (21:37)
[2025-05-07] MEDS: busPIRone 5 MG TAB 15 MG PO (21:37)
[2025-05-07] MEDS: Lactated Ringers 500 ML IV (21:38)
[2025-05-07] MEDS: MAGNESIUM SULFATE 2 GM/50 ML BAG IV_INF (21:40)
[2025-05-08] VITALS (7 sets, daily range): BP systolic 99–116; BP diastolic 0–72; PULSE 78–102; RESP 16–18; TEMP 36.3–37.4; O2SAT 97–99
[2025-05-08] MEDS: Lactated Ringers 1,000 ML 125 ML IV (00:09)
[2025-05-08] MEDS: Acetaminophen 325 MG TAB 650 MG PO ×3 (04:38→20:23)
[2025-05-08] MEDS: cefTRIAXone 1 GM/50 ML BAG IVPB ×2 (05:46→18:01)
[2025-05-08 06:42] LABS: Abs Immature Grans 0.07 10^3/uL (0.0-0.06); HCT 34.4 % (36.0-46.0); HGB 11.9 g/dL (11.2-15.7); Immature Grans % 0.5 %; MCH 31.8 pg (27.0-33.0); MCHC 34.6 % (32.0-36.0); MCV 92 fL (80-95); MPV 10.4 fL (8.0-11.0); Platelet Count 219 10^3/uL (130-400); RBC 3.74 10^6/uL (3.93-5.22); RDW 11.6 % (11.7-14.6); RDW-SD 38.8 fL; WBC 13.98 10^3/uL (4.4-10.8)
[2025-05-08 06:53] LABS: Anion Gap 10.0 mmol/L (3-11); BUN 12 mg/dL (7-18); CO2 25.0 mmol/L (21.0-32.0); Calcium 7.9 mg/dL (8.5-10.1); Chloride 105 mmol/L (98-107); Estimated GFR 126.11 (mL/min/1.73m2); Glucose 104 mg/dL (74-106); Magnesium 2.0 mg/dL (1.8-2.4); Potassium 3.5 mmol/L (3.5-5.1); Sodium 140 mmol/L (136-145)
[2025-05-08] MEDS: Enoxaparin 40 MG/0.4 ML SYR SC (07:57)
[2025-05-08] MEDS: busPIRone 15 MG TAB PO ×2 (07:57→20:23)
[2025-05-08] MEDS: Normal Saline Flush 10 ML SYR IVP ×4 (07:58→20:27)
--- NOTE | 2025-05-08 08:47 | W.NUTRFU ---
Date of service: 05/08/25 Time of Service: 08:47 Nutrition Note NOTE: Pt admitted for treatment of sepsis related to cellulitis of L breast. Pt denies any nutrition concerns/food allergies. Pt initally assessed as low nutrition risk currently. No nutrition intervention planned at this time. will monitor intake, weight, nutrition-related labs for any changes/concerns with her nutrition status. Time Spent in Nutritional Counseling and Treatment: 5 min
--- NOTE | 2025-05-08 08:54 | PDOC.CMIN ---
Date of service: 05/08/25 Time of Service: 08:54 Care Management Initial Assmt Initial Assessment Reason for Hospitalization: Mastitis, Sepsis Functional Status/Living Situation Patient Presentation: Dallin was awake and sitting up in bed when CM met with her. She is being treated for Mastitis, Cultures are pending, abx regimen to follow. Pt denies concerns at this time. Town of Residence: [place] Resides with: Spouse Significant Other/Family: Local Employment Status: Employed ([employer]) Instrumental Activities of Daily Living (ADLs): Independent Medications Medication Management: No Issues/Barriers identified Advance Directives Advance Directives: Do you have an Advance Directive: N 05/14/21, 09:04 AD On File at [facility]: N 05/14/21, 09:04 Date Asked 05/07/25 05/07/25, 19:25 AD Date Reviewed 05/07/25 05/07/25, 21:05 COLST On File at [facility] No 05/14/21, 09:04 COLST Date Scanned Code Status Resuscitation Status Full Code Insurance Coverage/Financial Issues Insurance: Medicaid of [place] - [id number] Care Team Visit Care Team Role Provider Type Kassi Garay Primary Care Provider NURSE PRACTITIONER Brittney Valles MD Emergency Provider [facility] STAFF PHYSICIAN Ted Peguero Admit Provider [facility] STAFF PHYSICIAN Attending Provider Discharge Potential Discharge Needs: PCP F/U Appt Anticipated Barriers to Discharge: None Identified Patient/Family Education Needs: Review discharge instructions, discuss Ask Me Three Transportation: Private vehicle Plan: Cultures Pending. ABX regimen to follow. Anticipate, Dallin will discharge home via private vehicle with family when medically ready per provider. Pt will follow up with her PCP and discharge plan of care as directed. CM will follow. Social Determinants of Health Screening Social Determinants of health last assessed in clinic: 05/07/25 Will the Patient Participate in the Screening?: Unable to obtain Do you worry about having a steady place to live?: no Problems where you live: no known problems In the past 12 months, have you had to go without electric, gas, oil or water in your home?: no Has lack of transportation kept you from medical appointments or from doing things needed for daily living?: choose not to answer Has anyone in your life made you feel unsafe or unsupported?: choose not to answer How hard is it for you to pay for the very basics like food, housing, medical care, and heating? Would you say it is:: Not hard at all Do you want help finding or keeping work or a job?: I do not need or want help If for any reason you need help with day-to-day activities such as bathing, preparing meals, shopping, managing finances, etc., do you get the help you need?: I don?t need any help How often do you feel lonely or isolated from those around you?: Never Do you speak a language other than Singaporean at home?: No Does the patient want assistance with any of the above?: No PFSH All Active Problems (Updated 05/07/25 @ 23:59 by Brittney Valles MD) DVT prophylaxis (Acute) Sepsis (Acute) Cellulitis of left breast (Acute) Tick bite (Acute) Anxiety (Chronic) Pain in pelvis (Acute) Hematochezia (Acute) Interstitial cystitis (Acute) Pyridium PRN and push fluids with episodes of dysuria Herpes labialis (Acute 02/08/13) Mild intermittent asthma without complication (Acute 09/14/17) exercised induced SOB Medical History Closed fracture of shaft of radius (08/20/12) Concussion without loss of consciousness, initial encounter (04/09/15) Eating disorder with ongoing treatment Bulimia features. Followed by Mabel Sotelo and has routine counseling with Adrianna Wolf. 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) UTI (urinary tract infection) Surgical History History of dental surgery All 4 wisdom teeth removed spring 2019 Family History Mother Mental disorder depression Asthma Father Asthma Brother Asthma Grandparent Heart disease Social History (Updated 05/07/25 @ 21:44 by Ted Peguero) Smoking/Tobacco Use Status: Current every day Tobacco Type: e-cigarettes Smokeless tobacco user: snus Quit status: considering quitting Smoking risk assessment performed?: Yes Alcohol Intake: current Alcohol Intake frequency: a few times a month Alcohol type: other Drug use: Never Substance use type: marijuana Housing: house Education Level: high school Details: 12th grade--[employer] Pets and animals: Yes (5 dogs, 5 cats, horses, guinea pigs) Pets and animals: cat(s), dog(s), guinea pig(s) and farm animals Current gender identity: female Seatbelt use: always Helmet use: Yes Helmet use: always Water heater temp set <120 deg: Yes Fire extinguisher in home: Yes Carbon monox detector in home: Yes Firearms in home: Yes Firearms unloaded and locked: Yes Do you feel safe at home: Yes Do you feel safe in your relationship?: Yes Additional Social history: works at [employer]. Male marcelle Sprague. History History 1 Para 0 Hx # Term Pregnancies 0 Multiple births 0 Hx # Pregnancies 0 Ectopic pregnancies 0 AB induced 0 Hx Number of Living Children 0 AB spontaneous 0
[2025-05-08] MEDS: Ketorolac 15 MG/ML VIAL IVP ×3 (09:22→22:20)
--- NOTE | 2025-05-08 09:26 | PGE_ITS ---
Date of Service Date of service: 05/08/25 Time of Service: 09:26 Assessment and Plan Assessment and plan (1) Cellulitis of left breast: Status: Acute Assessment and plan: Rapidly progressive cellulitis/mastitis of the left breast with associated sepsis syndrome. Given clinical picture, I agree with admission for IV antibiotics No abscess on CT but some perulent discharge reported initially- none at this time - will cover for staph including MRSA Ongoing daptomycin for MRSA coverage - rash with Vancomycin Ongoing eftriaxone. Blood cultures still pending. No focal fluctuance/collection develop, consider u/s- monitor for abscess formation (2) Sepsis: Status: Acute Assessment and plan: WBC 20 , HR 126 , fever, and focal infection to breasts c/w sepsis. Improving WBC Fortunately lactate not elevated, no organ damage. (3) Mild intermittent asthma without complication: Status: Acute Assessment and plan: No exacerbation - albuterol prn (4) DVT prophylaxis: Status: Acute Assessment and plan: Ongoing enoxaparin Discussed with Dr. Quiroz Subjective Subjective Patient reports: feels better, still having pain (L breast > R breast, generalized aches- no localized joint pain), tolerating liquids well, tolerating a regular diet, voiding w/o difficulty and other (night sweats, removed bilateral nipple piercings prior to CT imaging in the ED- had multiple localized infections around nipple piercing); denies diarrhea, vomiting, shortness of breath or fever Exam Narrative Exam Narrative: Alert and oriented X3, no acute distress, clear lungs, unlabored breathing, abdomen is non-acute, no CVA tenderness, left breast with improved erythema, no fluctuance, no drainage and no engorgement to nipple, right breast no erythema, no nipple drainage Objective Last Vital Signs Temp 36.3 C L 05/08/25 07:40 Pulse 86 05/08/25 07:40 Resp 16 05/08/25 07:40 BP 99/57 L 05/08/25 07:40 Pulse Ox 98 05/08/25 07:40 Laboratory Results - last 24 hr 05/07/25 05/07/25 05/08/25 17:50 19:11 06:08 WBC 24.35 H 13.98 H RBC 4.54 3.74 L Hgb 14.6 11.9 D Hct 41.2 34.4 L MCV 91 92 MCH 32.2 31.8 MCHC 35.4 34.6 RDW 11.5 L 11.6 L Plt Count 320 219 MPV 10.0 10.4 Immature Gran % 0.5 0.5 Neutrophils % 91.1 81.7 Lymphocytes % 3.9 10.4 Monocytes % 4.3 7.0 Eosinophils % 0.0 0.1 Basophils % 0.2 0.3 Nucleated RBC % 0.0 0.0 Absolute Neutrophils 22.18 H 11.42 H Absolute Lymphocytes 0.95 L 1.45 Absolute Monocytes 1.05 H 0.98 H Absolute Eosinophils 0.00 0.01 Absolute Basophils 0.05 0.04 RBC Morphology Normal VBG Lactate 1.1 Sodium 136 140 Potassium 3.7 3.5 Chloride 100 105 Carbon Dioxide 22.7 25.0 Anion Gap 13.3 H 10.0 BUN 15 12 Creatinine 0.8 0.7 Est GFR (CKD-EPI 2020) 107.44 126.11 Glucose 100 104 Calcium 9.0 7.9 L Magnesium 1.7 L 2.0 Total Bilirubin 1.0 AST 18 ALT 21 Alkaline Phosphatase 97 Total Protein 8.0 Albumin 4.5 Urine Color Yellow Urine Clarity Clear Urine pH 6.0 Ur Specific [place] 1.010 Urine Protein Negative Urine Ketones 15 H Urine Blood Negative Urine Nitrite Negative Urine Bilirubin Negative Urine Urobilinogen 0.2 Ur Leukocyte Esterase Negative Urine Glucose Negative Time Spent with Patient Time Spent with Patient: >50 minutes Time was spent: preparing to see the patient(eg.review tests), obtaining and/or reviewing separately otained hiistory, ordering medications,tests, procedures, referring, communicating with other health healthcare risk control consultant, indepentently interpreting results, counseling the patient and care coordination
--- NOTE | 2025-05-08 11:37 | CHAPLAIN ---
I had a short visit with Dallin. She had two visitors in the room with her. I explained my role and offered support.
[2025-05-09 05:30] VITALS: BP 105/62; PULSE 71; RESP 17; TEMP 36.3; O2SAT 99
[2025-05-09] MEDS: cefTRIAXone 1 GM/50 ML BAG IVPB (05:33)
[2025-05-09 06:58] LABS: Abs Immature Grans 0.03 10^3/uL (0.0-0.06); HCT 34.4 % (36.0-46.0); HGB 11.8 g/dL (11.2-15.7); Immature Grans % 0.4 %; MCH 32.6 pg (27.0-33.0); MCHC 34.3 % (32.0-36.0); MCV 95 fL (80-95); MPV 10.6 fL (8.0-11.0); Platelet Count 206 10^3/uL (130-400); RBC 3.62 10^6/uL (3.93-5.22); RDW 11.9 % (11.7-14.6); RDW-SD 41.1 fL; WBC 7.07 10^3/uL (4.4-10.8)
[2025-05-09] MEDS: Enoxaparin 40 MG/0.4 ML SYR SC (07:34)
[2025-05-09] MEDS: busPIRone 15 MG TAB PO (07:34)
[2025-05-09] MEDS: Normal Saline Flush 10 ML SYR IVP (07:35)
[2025-05-09 07:42] VITALS: BP 100/64; PULSE 78; RESP 16; TEMP 36.2; O2SAT 98
[2025-05-09 07:47] LABS: Anion Gap 6.3 mmol/L (3-11); BUN 5 mg/dL (7-18); CO2 27.7 mmol/L (21.0-32.0); Calcium 8.6 mg/dL (8.5-10.1); Chloride 110 mmol/L (98-107); Estimated GFR 130.88 (mL/min/1.73m2); Glucose 101 mg/dL (74-106); Potassium 4.1 mmol/L (3.5-5.1); Sodium 144 mmol/L (136-145)
--- NOTE | 2025-05-09 09:21 | PDOC.CMPRO ---
Date of service: 05/09/25 Time of Service: 09:21 Social Determinants of Health Screening Social Determinants of health last assessed in clinic: 05/07/25 Will the Patient Participate in the Screening?: Unable to obtain Do you worry about having a steady place to live?: no Problems where you live: no known problems In the past 12 months, have you had to go without electric, gas, oil or water in your home?: no Has lack of transportation kept you from medical appointments or from doing things needed for daily living?: choose not to answer Has anyone in your life made you feel unsafe or unsupported?: choose not to answer How hard is it for you to pay for the very basics like food, housing, medical care, and heating? Would you say it is:: Not hard at all Do you want help finding or keeping work or a job?: I do not need or want help If for any reason you need help with day-to-day activities such as bathing, preparing meals, shopping, managing finances, etc., do you get the help you need?: I don?t need any help How often do you feel lonely or isolated from those around you?: Never Do you speak a language other than Malay at home?: No Does the patient want assistance with any of the above?: No
[2025-05-09 10:54] VITALS: BP 107/67; PULSE 86; RESP 16; TEMP 36.2; O2SAT 99
--- NOTE | 2025-05-09 11:13 | CMDISCH_ITS ---
Date of service: 05/09/25 Time of Service: 11:14 LACE Index Scoring Tool Questions: Length of Stay (in days): 2 Was the patient admitted via the E.D.?: Yes E.D. Visits: 1 Answers: Total Score: 6 Risk of Readmission: Low Risk Care Management Discharge Plan Reason for Hospitalization: Mastitis Discharge Plan: Dallin is being discharged home with a New RN for PO ABX. Pt will follow up with her community providers and discharge plan of care as directed. N o new services are ordered before discharge. Patient/Family Education Needs: Review discharge instructions and plan to follow up after discharge. Discuss ask me three.
--- NOTE | 2025-05-09 11:54 | PHA.REVIEW2 ---
Pharmacy Admission Review Admission Clinical Review Admission Pharmacy Review: DVT prophylaxis (Acute) Sepsis (Acute) Cellulitis of left breast (Acute) Mild intermittent asthma without complication (Acute 09/14/17) Penicillins Allergy (Intermediate, Verified 05/07/25 17:30) RASH vancomycin Adverse Reaction (Intermediate, Verified 05/07/25 21:31) rash, redness Sulfa (Sulfonamide Antibiotics) Adverse Reaction (Mild, Verified 05/07/25 17:30) Other (See Comment) Resuscitation Status Full Code Height 5 ft 3 in Weight 58.967 kg Pharmacy Admission Review Renal Dosing Renal Dosing: BUN 5 mg/dL (7-18) L 05/09/25 06:00 Creatinine 0.6 mg/dL (0.55-1.02) 05/09/25 06:00 Medications needing adjustments: Reviewed (CrCl 138.07 mL/min) List of meds needing interventions: Current medications are okay Anticoagulation Anticoagulation: Hgb 11.8 g/dL (11.2-15.7) 05/09/25 06:00 Hct 34.4 % (36.0-46.0) L 05/09/25 06:00 Plt Count 206 10^3/uL (130-400) 05/09/25 06:00 Creatinine 0.6 mg/dL (0.55-1.02) 05/09/25 06:00 DVT Prophylaxis: Reviewed Medications: Enoxaparin (40mg daily) Relevant Labs Relevant Labs: Sodium 144 mmol/L (136-145) 05/09/25 06:00 Potassium 4.1 mmol/L (3.5-5.1) 05/09/25 06:00 Chloride 110 mmol/L (98-107) H 05/09/25 06:00 Magnesium 2.0 mg/dL (1.8-2.4) 05/08/25 06:08 Electrolytes, C-Reactive P, ESR: Reviewed Cardiac Review BP, HR, EF%: Reviewed (BP and HR WNL) QTc Review QTc: Reviewed (No EKG on file) IV to PO Switch IV Medications: Reviewed (ceftriaxone, daptomycin and ketorolac) Home Meds Home Med List reviewed: Reviewed Relevent Home Meds Not ordered & why?: acyclovir (PRN) and phenazopyridine (PRN) Current Meds Current Medication Order Review: Reviewed Pharmacy Antibiotic Review Relevant Labs: WBC 7.07 10^3/uL (4.4-10.8) 05/09/25 06:00 Temperature 36.2 C Temperature 36.2 C Temperature 36.3 C Microbiology 05/07/25 18:05 Blood Culture - Preliminary Blood NO GROWTH 24 HOURS 05/07/25 17:50 Blood Culture - Preliminary Blood NO GROWTH 24 HOURS Pharmacy Antibiotic Activity: C/S review and Reviewed, no change Comments: Patient is on ceftriaxone and daptomycin, day 2, for mastitis/sepsis. Received 1 dose of vancomycin and developed rash so provider changed to daptomycin. WBC decreased from 13.98 and ANC decreased from 11.42 to 4.29.
--- NOTE | 2025-05-09 11:55 | DSE_ITS ---
Date of service: 05/09/25 Time of Service: 11:55 DS: Diagnosis Discharge Diagnosis (1) Cellulitis of left breast: Status: Acute (2) Sepsis: Status: Acute (3) Mild intermittent asthma without complication: Status: Acute (4) DVT prophylaxis: Status: Acute Discharge Plan Disposition Patient Disposition: Home Condition: Improving Discharge Details Reason For Visit: mastitis, sepsis Admit Date/Time: 05/07/25 20:04 Admit Provider: Ted Peguero Attending Provider: Ted Peguero Primary Care Provider: Kassi Garay Hospital Course Hospital Course: This 20 years old female patient with past medical history of mild intermittent asthma, presented to the ED at [facility] on 05/07/2025 for evaluation of left breast redness swelling and intermittent pus expression from her nipples. The patient reported bilateral piercing to her nipples last year with repetitive intermittent superficial infections. On examination right breast was also found to be slightly red around the areola; left breast with redness, induration, and significant tenderness in the inferolateral quadrant without axillary lymphadenopathy bilaterally. Chest CT was negative for acute findings to the breasts. As per ED workup patient met sepsis criteria and was admitted to the medical surgical floor for ongoing IV antibiotics, IV fluid and pending blood cultures. Blood cultures were negative and patient has been afebrile for over 24 hours and WBC are on the downtrend. The patient will be discharged home on oral doxycycline and cefpodoxime for 7 days. Patient advised not to reinsert piercings to her nipples. Follow-up with PCP within 7 days of discharge. Patient advised to use condemns or additional means of contraception as the oral antibiotics can alter the effectiveness of hormonal control and to await for her PCP's clearance to decreased her increased level of protection against .. Discussed with Dr. Richie Wright Meds and New Rx's Prescriptions: New acetaminophen 325 mg Tablet 650 mg PO Q4H PRN PRNQty: 30 0RF cefpodoxime 200 mg tablet 200 mg PO BID Qty: 14 0RF Rx Instructions: must administer with a meal/food doxycycline hyclate 100 mg capsule 100 mg PO BID Qty: 14 0RF Continued albuterol sulfate [ProAir HFA] 90 mcg/actuation HFA aerosol inhaler 2 puff Inhalation Q4H PRN Qty: 2 3RF Rx Instructions: Take 2 puffs with spacer every 4-6 hours as needed (DME) Aerochamber MV Spacer See Rx Instructions .ROUTE .MEDSUPPLY Qty: 1 1RF Rx Instructions: As directed phenazopyridine [Pyridium] 100 mg tablet 100 mg PO TID PRN (Reason: pain) Qty: 20 0RF Rx Instructions: Do not take more than 2 days in a row buspirone 15 mg tablet 15 mg PO BID Qty: 60 3RF Rx Instructions: take one tablet twice a day Mary 14 mcg/24 hr (3 yrs) 13.5 mg intrauterine device 1 device intrauterine ONCE Rx Instructions: as a single dose acyclovir 400 MG tablet 400 mg PO TID PRN Rx Instructions: take 1 tablet 3 times a day for 5 days, begin at first hint of cold sore Discharge Instructions Referrals: Kassi Garay [Primary Care Provider, Medicine] Referral Note: Follow- up within 7 days of discharge please Activity:: Activity as Tolerated Equipment/Supplies:: No Equipment Needed Diet:: As Tolerated Discharge Orders Discharge Orders: Discharge Order (Routine); Ordered 05/09/25 Ordered By: Charla Magana DS: Summary Time Spent with Patient providing and/or coordinating discharge services: Greater than 30 minutes Status at Discharge Functional status at discharge: independent ambulation Overall status at discharge: patient is progressing back to baseline Mental Status: mental status grossly normal Speech and Movement: speech and movement normal Mood: congruent mood Affect: normal affect Exam Narrative Exam Narrative: Alert and oriented X3, no acute distress, clear lungs, unlabored breathing, abdomen non-distended , soft and non-tender bowel sounds are present,left breast with improved erythema, no fluctuance, no drainage and no engorgement to nipple, right breast no erythema with no nipple drainage Psych Mental Status: mental status grossly normal Speech and Movement: speech and movement normal Mood: congruent mood Affect: normal affect DS: Data Vitals/I&O Vitals and I&O: Vital Signs Temperature 36.2 C L 05/09/25 10:54 Temperature Source Temporal Artery Scan 05/09/25 10:54 Pulse 86 05/09/25 10:54 Pulse Rhythm Regular 05/07/25 21:04 Pulse 126 H 05/07/25 18:40 Respiratory Rate 16 05/09/25 10:54 Respiratory Effort Normal 05/07/25 21:04 Respiratory Depth Normal 05/07/25 21:04 Blood Pressure 107/67 05/09/25 10:54 Blood Pressure Mean 80 05/09/25 10:54 Blood Pressure Position Sitting 05/07/25 17:30 Pulse Oximetry 99 05/09/25 10:54 Oxygen Delivery Method Room Air 05/09/25 10:54 Oxygen Flow Rate 0 05/09/25 10:54 Pain Level 5 05/08/25 15:18 Intake & Output 05/08/25 05/08/25 05/09/25 11:59 23:59 11:59 Intake Total 2850 / 4300 1400 / 4300 370 / 370 Balance 2850 / 4300 1400 / 4300 370 / 370 Intake: IV 2600 / 2750 100 / 2750 250 / 250 Oral 250 / 1550 1300 / 1550 120 / 120 Other: Comment voided in toilet independent to bathroom independent in rrom Data Completed and Pending Labs on day of discharge: Labs from last 24 hours 05/09/25 06:00 WBC 7.07 RBC 3.62 L Hgb 11.8 Hct 34.4 L MCV 95 MCH 32.6 MCHC 34.3 RDW 11.9 Plt Count 206 MPV 10.6 Immature Gran % 0.4 Neutrophils % 60.7 Lymphocytes % 24.8 Monocytes % 11.3 Eosinophils % 2.4 Basophils % 0.4 Nucleated RBC % 0.0 Absolute Neutrophils 4.29 Absolute Lymphocytes 1.75 Absolute Monocytes 0.80 Absolute Eosinophils 0.17 Absolute Basophils 0.03 Sodium 144 Potassium 4.1 Chloride 110 H Carbon Dioxide 27.7 Anion Gap 6.3 BUN 5 L Creatinine 0.6 Est GFR (CKD-EPI 2020) 130.88 Glucose 101 Calcium 8.6 Preliminary micro results at discharge 05/07/25 18:05 Blood Blood Culture - Preliminary NO GROWTH 24 HOURS 05/07/25 17:50 Blood Blood Culture - Preliminary NO GROWTH 24 HOURS PFSH All Active Problems (Updated 05/07/25 @ 23:59 by Brittney Valles MD) DVT prophylaxis (Acute) Sepsis (Acute) Cellulitis of left breast (Acute) Tick bite (Acute) Anxiety (Chronic) Pain in pelvis (Acute) Hematochezia (Acute) Interstitial cystitis (Acute) Pyridium PRN and push fluids with episodes of dysuria Herpes labialis (Acute 02/08/13) Mild intermittent asthma without complication (Acute 09/14/17) exercised induced SOB Medical History Closed fracture of shaft of radius (08/20/12) Concussion without loss of consciousness, initial encounter (04/09/15) Eating disorder with ongoing treatment Bulimia features. Followed by Mabel Sotelo and has routine counseling with Adrianna Wolf. 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) UTI (urinary tract infection) Surgical History History of dental surgery All 4 wisdom teeth removed spring 2019 Family History Mother Mental disorder depression Asthma Father Asthma Brother Asthma Grandparent Heart disease Social History (Updated 05/07/25 @ 21:44 by Ted Peguero) Smoking/Tobacco Use Status: Current every day Tobacco Type: e-cigarettes Smokeless tobacco user: snus Quit status: considering quitting Smoking risk assessment performed?: Yes Alcohol Intake: current Alcohol Intake frequency: a few times a month Alcohol type: other Drug use: Never Substance use type: marijuana Housing: house Education Level: high school Details: 12th grade--[employer] Pets and animals: Yes (5 dogs, 5 cats, horses, guinea pigs) Pets and animals: cat(s), dog(s), guinea pig(s) and farm animals Current gender identity: female Seatbelt use: always Helmet use: Yes Helmet use: always Water heater temp set <120 deg: Yes Fire extinguisher in home: Yes Carbon monox detector in home: Yes Firearms in home: Yes Firearms unloaded and locked: Yes Do you feel safe at home: Yes Do you feel safe in your relationship?: Yes Additional Social history: works at [employer]. Male marcelle Sprague. History History 1 Para 0 Hx # Term Pregnancies 0 Multiple births 0 Hx # Pregnancies 0 Ectopic pregnancies 0 AB induced 0 Hx Number of Living Children 0 AB spontaneous 0 Time Spent with Patient Time Spent with Patient: >85 minutes Time was spent: preparing to see the patient(eg.review tests), obtaining and/or reviewing separately otained hiistory, ordering medications,tests, procedures, referring, communicating with other health health care liaison, indepentently interpreting results, counseling the patient and care coordination
== END 2025-05-09 13:02 | disposition home or self-care (01) ==
LOC: ER 19:25 → MS 21:05
PROVIDERS: Nurse Practitioner Acute Care; Admitting Provider Family Medicine; Emergency Provider Emergency Medicine; PCP Nurse Practitioner Family; Visit Provider Family Medicine
DX: A41.9 Sepsis, unspecified organism (principal); N61.0 Mastitis without abscess; J45.20 Mild intermittent asthma, uncomplicated; L29.89 Other pruritus; T36.8X5A Adverse effect of other systemic antibiotics, initial encounter; L27.0 Generalized skin eruption due to drugs and medicaments taken internally; F41.9 Anxiety disorder, unspecified; R10.2 Pelvic and perineal pain; F17.290 Nicotine dependence, other tobacco product, uncomplicated; F12.90 Cannabis use, unspecified, uncomplicated
CPT/HCPCS: 00123; 36415; 80048; 80053; 87040; 96361; 96365; 96366; 96367; 96372; 96375; 96376; 99285; J1650; 71260; 81003; 83605; 83735; 85025; 99222; 99233; 99239; G0378; J0696; J0878; J1885; J3373; J3475; J3490

== ENCOUNTER 2025-06-12 14:47 | Outpatient (REF) | payer MEDICAID, SELFPAY ==
--- NOTE | 2025-06-12 11:15 | PAPFT_PTH ---
PATIENT: Dallin Vicente LOC: [facility]#:[id number] AGE/SX: 20/F ROOM: RE06/12/[address]: CAMACHO Rowland : 2005 BED: DIS: 06/12/2025 SPEC #: [id number] RECD: 06/12/25 18:29 STATUS: VIOLET ROTHMAN #: [id number] CHICA: 06/12/25 11:[address]: Iveth Boateng DEPT: [facility] Cytology RECD BY: Nilda Castillo ENTERED: 06/12/25 18:29 SP TYPE: PAPFT OTHR DR: Kassi Garay Tissues: 1 - CX/ENDOCX FOR PAP SMEARS Procedures: PAP THIN PREP/[facility] Screening Comments: [id number]
[2025-06-12 15:31] LABS: TSH 0.76 uIU/mL (0.36-3.74)
[2025-06-13 11:55] LABS: Chlamydia Result Negative (Negative); GC Result Negative (Negative)
== END 2025-06-12 14:48 | disposition home or self-care (01) ==
LOC: NCHCN 14:47
PROVIDERS: PCP Nurse Practitioner Family
DX: Z12.4 Encounter for screening for malignant neoplasm of cervix (principal); Z00.00 Encounter for general adult medical examination without abnormal findings; Z11.51 Encounter for screening for human papillomavirus (HPV)
CPT/HCPCS: 87491; 87591; 88142; 84439; 84443

== ENCOUNTER 2025-07-25 11:27 | Outpatient (REF) | payer MEDICAID, SELFPAY ==
[2025-07-25 16:01] LABS: Glucose Negative (Negative)
== END 2025-07-25 11:28 | disposition home or self-care (01) ==
LOC: NCHCN 11:27
PROVIDERS: PCP Nurse Practitioner Family
DX: Z00.00 Encounter for general adult medical examination without abnormal findings (principal)
CPT/HCPCS: 81003

== ENCOUNTER 2025-08-27 15:38 | Outpatient (REF) | payer MEDICAID, SELFPAY ==
[2025-08-29 11:09] LABS: Chlamydia Result Negative (Negative); GC Result Negative (Negative)
== END 2025-08-27 15:39 | disposition home or self-care (01) ==
LOC: NCHCN 15:38
PROVIDERS: PCP Nurse Practitioner Family; Visit Provider Nurse Practitioner Family
DX: R10.21 Pelvic and perineal pain right side (principal)
CPT/HCPCS: 87491; 87591; 87480; 87510; 87660

== ENCOUNTER → 2025-09-25 00:37 | Outpatient (CLI) | payer MEDICAID, SELFPAY ==
--- NOTE | 2025-09-25 | DI.US_ITS ---
Exam(s) US PELVIS TRANSVAGINAL EXAM: US PELVIS TRANSVAGINAL CLINICAL HISTORY: RT SIDED PELVIC PAIN, R10.21, PELVIC AND PERINEAL PAIN TECHNIQUE: Transabdominal and transvaginal imaging was performed using standard protocol. COMPARISON: US US PELVIS TRANSVAGINAL from 07/27/2021 FINDINGS: The bladder has a normal appearance. UTERUS: Anteverted. 8.1 x 3.3 x 4.3 cm Endometrium: 7 mm. There is an IUD which is positioned in the lower uterine segment and upper cervix. Myometrium: Unremarkable. Cervix: Unremarkable. OVARIES: Right: Cyst or mass: None. Left: Cyst or mass: None. DOPPLER: Color: Symmetric and uniform flow to both ovaries. No hyperemia. CUL-DE-SAC: Free fluid: None. IMPRESSION: 1. The IUD is positioned abnormally low in the lower uterine segment and upper cervix.. 2. Unremarkable bilateral ovaries. DATA REPOSITORY:
== END ==
LOC: DI 00:37
PROVIDERS: Visit Provider Nurse Practitioner Family
DX: R10.21 Pelvic and perineal pain right side (principal)
CPT/HCPCS: 76830; 76856